=== PATIENT | male | born 1985 | race Caucasian/White ===

== ENCOUNTER 2019-11-09 17:35 | Emergency (ER) | payer OTHER ==
[2019-11-09 17:49] VITALS: BP 115/80; PULSE 79; RESP 18; TEMP 98.4
--- NOTE | 2019-11-09 18:37 | ED ---
ENT HPI - General Chief complaint: ENT Stated complaint: Throat/Tongue Problems Time Seen by Provider: 11/09/19 17:55 Source: patient, RN notes reviewed, old records reviewed Mode of arrival: ambulatory Limitations: no limitations - History of Present Illness Initial comments: Patient is a 34-year-old male presents with a chief complaint of a white film over his tongue in the back of his throat. Patient reports he does have history of asthma and has had used steroids and inhalers a few months ago prior to this film developing. He's had this film over his mouth for the past 2 months. Patient states it is denies difficult swallowing. Denies fever, cough, or chest pain. Denies abdominal pain, nausea and vomiting. He is a smoker. - Related Data Previous Rx's Medication Instructions Recorded Nystatin 100,000 Unit/ml Susp 4 ml PO QID #160 ml 11/09/19 [Mycostatin Oral Susp] Allergies Allergy/AdvReac Type Severity Reaction Status Date / Time No Known Allergies Allergy Verified 11/09/19 17:49 Review of Systems ROS Statement: Those systems with pertinent positive or pertinent negative responses have been documented in the HPI. ROS Other: All systems not noted in ROS Statement are negative. Past Medical History Past Medical History: No Reported History History of Any Multi-Drug Resistant Organisms: None Reported Past Surgical History: Appendectomy Past Psychological History: No Psychological Hx Reported Smoking Status: Current every day smoker Past Alcohol Use History: None Reported Past Drug Use History: None Reported General Exam - General Exam Comments Initial Comments: 34 year old male, no distress. Limitations: no limitations General appearance: alert, in no apparent distress Head exam: Present: atraumatic, normocephalic, normal inspection Eye exam: Present: normal appearance, PERRL, EOMI. Absent: scleral icterus, conjunctival injection, periorbital swelling ENT exam: Present: normal exam, mucous membranes moist, other (white film over malean) Neck exam: Present: normal inspection. Absent: tenderness, meningismus, lymphadenopathy Respiratory exam: Present: normal lung sounds bilaterally. Absent: respiratory distress, wheezes, rales, rhonchi, stridor Cardiovascular Exam: Present: regular rate, normal rhythm, normal heart sounds. Absent: systolic murmur, diastolic murmur, rubs, gallop, clicks GI/Abdominal exam: Present: soft, normal bowel sounds. Absent: distended, tenderness, guarding, rebound, rigid Neurological exam: Present: alert, oriented X3, CN II-XII intact Psychiatric exam: Present: normal affect, normal mood Skin exam: Present: warm, dry, intact, normal color. Absent: rash Course Vital Signs 11/09/19 17:46 Temperature 98.4 F Pulse Rate 79 Respiratory 18 Rate Blood Pressure 115/80 O2 Sat by Pulse 100 Oximetry Medical Decision Making - Medical Decision Making Patient is a 34 year old male with 2 months of white film over tongue and mouth after using steriods or inhalers. He is a smoker as well, and patient educated on smoking cessation for 5 minutes. Patient film with history of steroid use seems related to thrush. Discussed nystating rinse and follow up with PCP and ENT and throat culture completed. Patient is agreeable to treatment plan and return parameters discussed. Disposition Clinical Impression: Oral thrush Disposition: HOME SELF-CARE Condition: Good Instructions (If sedation given, give patient instructions): Oral Candidiasis (ED) Additional Instructions: Taken nystatin swish and rinse as prescribed. Follow-up with primary care doctor and ENT. Prescriptions: Nystatin 100,000 Unit/ml Susp [Mycostatin Oral Susp] 4 ml PO QID #160 ml Is patient prescribed a controlled substance at d/c from ED?: No Referrals: None,Stated [Primary Care Provider] - 1-2 days Rafiq Sanders [STAFF PHYSICIAN] - 1-2 days Jared Salmon DO [Doctor of Osteopathic Medicine] - 1-2 days Time of Disposition: 18:35
== END 2019-11-09 19:00 | disposition home or self-care (01) ==
LOC: EC 17:35
DX: B37.0 Candidal stomatitis (principal); F17.200 Nicotine dependence, unspecified, uncomplicated; Z71.6 Tobacco abuse counseling
CPT/HCPCS: 87070; 99284

== ENCOUNTER 2024-07-02 13:24 | Emergency (ER) | payer OTHER ==
[2024-07-02 13:32] VITALS: TEMP 98.5
--- NOTE | 2024-07-02 13:53 | ED ---
Chest Pain HPI - General Chief Complaint: Chest Pain Stated Complaint: chest pain,SOB Time Seen by Provider: 07/02/24 13:36 Source: patient, RN notes reviewed Mode of arrival: ambulatory Limitations: no limitations - History of Present Illness Initial Comments: 39-year-old male presents emergency department with chief complaint of lower chest pressure stomach discomfort. He states that started this morning states seem to wrap around. Patient states that he did take some Advil hours ago which seemed to help. He has no upper chest pain he has no shortness of breath he does have a history of asthma had recent URI symptoms. He does admit to history of reflux on current omeprazole. No lower abdominal pain, no change in bowel habits. - Related Data Home Medications Medication Instructions Recorded Confirmed No Known Home Medications 07/02/24 07/02/24 Allergies Allergy/AdvReac Type Severity Reaction Status Date / Time No Known Allergies Allergy Verified 07/02/24 14:23 Review of Systems ROS Statement: Those systems with pertinent positive or pertinent negative responses have been documented in the HPI. ROS Other: All systems not noted in ROS Statement are negative. EKG Findings - EKG Comments: EKG Findings:: EKG performed at 13: 35 sinus rhythm with a rate of 86 KS 164 QRS 94 QT/QTc 320/364 - EKG Results: EKG: interpreted by SALMA Past Medical History Past Medical History: Asthma History of Any Multi-Drug Resistant Organisms: None Reported Past Surgical History: Appendectomy Past Psychological History: No Psychological Hx Reported Smoking Status: Light tobacco smoker Past Alcohol Use History: None Reported Past Drug Use History: Marijuana General Exam Limitations: no limitations General appearance: alert, in no apparent distress Head exam: Present: atraumatic, normocephalic, normal inspection Eye exam: Present: normal appearance, PERRL, EOMI. Absent: scleral icterus, conjunctival injection, periorbital swelling ENT exam: Present: normal exam, normal oropharynx, mucous membranes moist Neck exam: Present: normal inspection, full ROM. Absent: tenderness, meningismus, lymphadenopathy Respiratory exam: Present: normal lung sounds bilaterally. Absent: respiratory distress, wheezes, rales, rhonchi, stridor Cardiovascular Exam: Present: normal rhythm, tachycardia, normal heart sounds. Absent: systolic murmur, diastolic murmur, rubs, gallop, clicks GI/Abdominal exam: Present: soft, tenderness, normal bowel sounds. Absent: distended, guarding, rebound, rigid Back exam: Present: full ROM. Absent: CVA tenderness (R), CVA tenderness (L) Neurological exam: Present: alert, oriented X3, CN II-XII intact, reflexes normal. Absent: motor sensory deficit Skin exam: Present: warm, dry, intact, normal color. Absent: rash Course Vital Signs 07/02/24 13:28 Temperature 98.5 F Pulse Rate 110 H Respiratory 20 Rate Blood Pressure 117/72 O2 Sat by Pulse 99 Oximetry Chest Pain MDM - MDM Was pt. sent in by a medical professional or institution (, PA, DATE NIGHT SITTER, urgent care, hospital, or penitentiary...) When possible be specific @ -No Did you speak to anyone other than the patient for history (EMS, parent, family, police, friend...)? What history was obtained from this source @ -No Did you review nursing and triage notes (agree or disagree)? Why? @ -I reviewed and agree with nursing and triage notes Were old charts reviewed (outside hosp., previous admission, EMS record, old EKG, old radiological studies, urgent care reports/EKG's, penitentiary records)? Report findings @ -No old charts were reviewed Differential Diagnosis (chest pain, altered mental status, abdominal pain women, abdominal pain men, vaginal bleeding, weakness, fever, dyspnea, syncope, headache, dizziness, GI bleed, back pain, seizure, CVA, palpatations, mental health, musculoskeletal)? @ -Differential Abdominal Pain Men: Appendicitis, cholecystitis, diverticulosis, ischemic bowel, pancreatitis, hepatitis, UTI, gastroenteritis, AAA, incarcerated hernia, bowel obstruction, constipation, inflammatory bowel, hepatitis, peptic ulcer disease, splenic infarction, perforated viscus, testicular torsion, this is not meant to be an all-inclusive list EKG interpreted by me (3pts min.). @ -As above X-rays interpreted by me (1pt min.). @ -[Chest x-ray shows no acute process CT interpreted by me (1pt min.). @ -None done U/S interpreted by me (1pt. min.). @ -None done What testing was considered but not performed or refused? (CT, X-rays, U/S, labs)? Why? @ -None What meds were considered but not given or refused? Why? @ -None Did you discuss the management of the patient with other professionals (professionals i.e. , PA, DATE NIGHT SITTER, lab, RT, psych nurse, vp digital marketing social media and crm, count team member, teacher, chief digital media officer, senior case manager)? Give summary @ -No Was smoking cessation discussed for >3mins.? @ -No Was critical care preformed (if so, how long)? @ -No Were there social determinants of health that impacted care today? How? (Homelessness, low income, unemployed, alcoholism, drug addiction, transportation, low edu. Level, literacy, decrease access to med. care, senior care, rehab)? @ -No Was there de-escalation of care discussed even if they declined (Discuss DNR or withdrawal of care, Hospice)? DNR status @ -No What co-morbidities impacted this encounter? (DM, HTN, Smoking, COPD, CAD, Ca ncer, CVA, ARF, Chemo, Hep., AIDS, mental health diagnosis, sleep apnea, morbid obesity)? @ -GERD, asthma Was patient admitted / discharged? Hospital course, mention meds given and route, prescriptions, significant lab abnormalities, going to OR and other pertinent info. @ -Discharged patient's laboratory studies unremarkable. Patient is currently asymptomatic patient pain may be caused by muscle spasm in the epigastric region patient feels comfortable discharge return parameters levi. Undiagnosed new problem with uncertain prognosis? @ -No Drug Therapy requiring intensive monitoring for toxicity (Heparin, Nitro, Insulin, Cardizem)? @ -No Were any procedures done? @ -No Diagnosis/symptom? @ -Abdominal pain Acute, or Chronic, or Acute on Chronic? @ -Acute Uncomplicated (without systemic symptoms) or Complicated (systemic symptoms)? @ -Uncomplicated Side effects of treatment? @ -No Exacerbation, Progression, or Severe Exacerbation? @ -No Poses a threat to life or bodily function? How? (Chest pain, [place], [place], pneumonia, PE, COPD, DKA, ARF, appy, cholecystitis, CVA, Diverticulitis, Homicidal, Suicidal, threat to staff... and all critical care pts) @ -No Disposition Clinical Impression: Abdominal pain Disposition: HOME SELF-CARE Condition: Stable Instructions (If sedation given, give patient instructions): Abdominal Pain (ED) Additional Instructions: Please return to the Emergency Department if symptoms worsen or any other concerns. Is patient prescribed a controlled substance at d/c from ED?: No Referrals: Ben Rich MD [Primary Care Provider] - 1-2 days Time of Disposition: 15:41
[2024-07-02] MEDS: SODIUM CHLORIDE 0.9% 500 ML 500 ML IV STA (14:53)
[2024-07-02 14:56] LABS: Basophils % (A) 0 %; Eosinophils # (A) 0.2 k/uL (0-0.7); Eosinophils % (A) 1 %; HCT 50.3 % (39.0-53.0); HGB 16.8 gm/dL (13.0-17.5); Lymphocytes # (A) 0.9 k/uL (1.0-4.8); Lymphocytes % (A) 8 %; MCH 28.8 pg (25.0-35.0); MCHC 33.4 g/dL (31.0-37.0); Mean Platelet Volume 7.5; Monocytes # (A) 0.5 k/uL (0-1.0); Monocytes % (A) 4 %; Neutrophils # (A) 9.9 k/uL (1.3-7.7); Neutrophils % (A) 85 %; Platelet Count 227 k/uL (150-450); RBC 5.86 m/uL (4.30-5.90); RDW 13.2 % (11.5-15.5); WBC 11.6 k/uL (3.8-10.6)
[2024-07-02 15:15] LABS: ALT 33 U/L (4-49); AST 31 U/L (17-59); African American GFR (CKD) >90 (>60 ml/min/1.73 sqM); Albumin 4.4 g/dL (3.5-5.0); Alkaline Phosphatase 78 U/L (38-126); Anion Gap 7 mmol/L; Blood Urea Nitrogen 10 mg/dL (9-20); Calcium 9.5 mg/dL (8.4-10.2); Carbon Dioxide 22 mmol/L (22-30); Chloride 108 mmol/L (98-107); Glucose 95 mg/dL (74-99); Magnesium 1.9 mg/dL (1.6-2.3); Non-African American GFR(CKD) >90 (>60 ml/min/1.73 sqM); Potassium 4.1 mmol/L (3.5-5.1); Sodium 137 mmol/L (137-145); Total Bilirubin 0.7 mg/dL (0.2-1.3); Total Protein 7.3 g/dL (6.3-8.2)
--- NOTE | 2024-07-02 15:22 | XR ---
EXAMINATION TYPE: XR chest 2V DATE OF EXAM: 07/02/2024 COMPARISON: NONE TECHNIQUE: PA and lateral views submitted. HISTORY: Chest pain FINDINGS: The lungs are clear and there is no pneumothorax, pleural effusion, or focal pneumonia. Heart size normal and no overt failure. Osseous structures demonstrate hypertrophic and degenerative changes of the spine. Tiny calcified granuloma right upper lobe. IMPRESSION: 1. No acute process.
[2024-07-02 15:28] LABS: Prothrombin Time 10.8 sec (10.0-12.5)
[2024-07-02 16:07] VITALS: BP 118/76; PULSE 76; RESP 18
== END 2024-07-02 16:08 | disposition home or self-care (01) ==
LOC: EC 13:24
DX: R10.9 Unspecified abdominal pain (principal); F17.200 Nicotine dependence, unspecified, uncomplicated
CPT/HCPCS: 36415; 71046; 80053; 83735; 84484; 85025; 85379; 85610; 85730; 93005; 96360; 99285